=== PATIENT | female | born 1990 | race Caucasian/White ===

== ENCOUNTER 2017-09-01 15:09 | Inpatient (IN) | payer OTHER ==
[~2017-09-01] VITALS: Ht 160 cm; Wt 75.4 kg
[2017-09-01 15:13] VITALS: BP 117/69
[2017-09-01] MEDS ORDERED: ZOLOFT100 MG PO (15:21)
[2017-09-01] MEDS ORDERED: 'CLONIDINE0.1 MG PO (15:21)
[2017-09-01] MEDS ORDERED: SEROQUEL200 MG PO (15:22)
[2017-09-01] MEDS ORDERED: AMLODIPINE BESYL5 MG PO (15:39)
[2017-09-01] MEDS ORDERED: COZAAR100 MG PO (15:40)
[2017-09-01] MEDS ORDERED: DEPAKOTE ER250 MG PO (15:40)
[2017-09-01] MEDS ORDERED: OMEPRAZOLE D/R20 MG PO (15:42)
[2017-09-01] MEDS ORDERED: NICODERM CQ1 EAC2 T (15:43)
[2017-09-01 16:08] LABS: BASO % 0.6 % (0.0-1.0); EOS # 0.3 10*3/uL (0.0-0.4); EOS % 4.5 % (1.0-4.0); HEMOGLOBIN 12.8 g/dl (12.0-16.0); LYMPH # 1.5 10*3/uL (1.3-4.4); LYMPH % 22.7 % (27.0-41.0); MEAN CELL VOLUME 96.1 fl (81.0-99.0); MEAN CORPUSCULAR HGB 31.5 pg (27.0-31.0); MEAN CORPUSCULAR HGB CONC 32.8 g/dl (33.0-37.0); MEAN PLATELET VOLUME 9.8 fl (9.6-12.3); MONO # 0.7 10*3/uL (0.1-1.0); MONO % 11.6 % (3.0-9.0); NEUT # 3.9 10*3/uL (2.3-7.9); NEUT % 60.4 % (47.0-73.0); PLATELET COUNT AUTOMATED 261 10*3/uL (130-400); RED BLOOD COUNT 4.06 10*6/uL (4.10-5.10); WHITE BLOOD COUNT 6.4 10*3/uL (4.8-10.8)
[2017-09-01 16:23] LABS: ALBUMIN 3.8 gm/dl (3.1-4.5); ALKALINE PHOSPHATASE 111 U/L (45-117); BUN 10 mg/dl (7-24); CHLORIDE 104 mmol/L (98-107); CREATININE 0.81 mg/dL (0.55-1.02); POTASSIUM 4.2 mmol/L (3.5-5.1); SGOT/AST 74 IU/L (3-35); SGPT/ALT 78 U/L (12-78); SODIUM 139 mmol/L (136-145); TOTAL PROTEIN 8.5 gm/dL (6.4-8.2)
[2017-09-01 16:26] LABS: BETA-HCG, QUANT < 1.0 mIU/mL (1-3)
--- NOTE | 2017-09-01 16:28 | NUR ---
PATIENT IS ADMITTED TO THE [facility] SERVICE. BYRON ROCHA B[employer]A[facility] [employer]
[2017-09-01 16:33] LABS: BILIRUBIN NEGATIVE (NEGATIVE); BLOOD NEGATIVE (NEGATIVE); CLARITY SL CLOUDY (CLEAR); COLOR YELLOW (YELLOW); GLUCOSE NEGATIVE (NEGATIVE); KETONE TRACE (NEGATIVE); LEUKO ESTERASE NEGATIVE (NEGATIVE); NITRITE NEGATIVE (NEGATIVE); SPECIFIC GRAVITY >= 1.030 (1.005-1.030)
[2017-09-01 16:40] LABS: BACTERIA 2+; EPITHELIAL CELLS 0-2; MUCOUS TRACE; RBC 0-2 rbc/hpf (0-2)
[2017-09-01 16:41] LABS: URINE AMPHETAMINES < 1000 (1000ng/ml); URINE BARBITURATES < 200 (200ng/ml); URINE BENZODIAZEPINES > 200 (200ng/ml); URINE CANNABINOIDS (THC) < 50 (50ng/ml); URINE COCAINE < 300 (300ng/ml); URINE METHADONE < 300 (300ng/ml); URINE OPIATES > 300 (300ng/ml); URINE PHENCYCLIDINE < 25 (25ng/ml)
[2017-09-01 17:10] VITALS: BP 102/60
[2017-09-01 17:24] VITALS: BP 125/86
[2017-09-01 20:00] VITALS: BP 102/60
--- NOTE | 2017-09-01 20:31 | NUR ---
SPOKE WITH AT THIS TIME REGARDING PATIENT'S HOME MED REC. MED REC UPDATED PER PATIENT RECALL. PATIENT REQUESTING SEROQUEL. ALSO DISCUSSED SCHEDULED SUBUTEX AND PATIENT MISSED FIRST DOSE. INSTRUCTED TO GIVE MISSED DOSE NOW AND GIVE SCHEDULED SECOND DOSE AT MIDNIGHT.
[2017-09-01] MEDS ORDERED: KEPPRA500 MG PO (20:42)
--- NOTE | 2017-09-01 20:43 | NUR ---
PATIENT MEDICATED WITH PO VISTARIL PER PRN ORDER FOR C/O ANXIETY. MISSED DOSE OF SCHEDULED SUBUTEX ALSO GIVEN AT THIS TIME PER DR. ORNELAS'S ORDERS. PATIENT STATES SHE ALSO TAKES KEPPRA AT HOME 500 MG BID FOR HX OF SEIZURES. MED REC UPDATED AT THIS TIME. WILL MONITOR PATIENT. CALL LIGHT LEFT IN REACH.
--- NOTE | 2017-09-01 21:36 | NUR ---
PATIENT MEDICATED WITH PO MOTRIN PER PRN ORDER FOR C/O CHRONIC BACK PAIN. NICOTINE PATCH ALSO PLACED TO LEFT BACK SHOULDER PER REQUEST. WILL MONITOR. CALL LIGHT LEFT IN REACH.
--- NOTE | 2017-09-01 22:06 | NUR ---
NOTIFIED OF UPDATES TO [facility] MED REC. NEW ORDERS TO FOLLOW.
--- NOTE | 2017-09-01 22:45 | NUR ---
EARLIER MEDICATIONS EFFECTIVE PER PATIENT. WILL CONTINUE TO MONITOR. CALL LIGHT LEFT IN REACH.
[2017-09-02] VITALS: BP 94/57
--- NOTE | 2017-09-02 00:49 | NUR ---
PATIENT MEDICATED WITH PO TYLENOL PER PRN ORDER FOR C/O BACK PAIN. WILL MONITOR EFFECTIVENESS. CALL LIGHT LEFT IN REACH.
--- NOTE | 2017-09-02 01:24 | NUR ---
EARLIER TYLENOL APPEARS EFFECTIVE. PATIENT ASLEEP IN BED. NO S/S OF DISTRESS NOTED.
[2017-09-02 04:00] VITALS: BP 92/44
--- NOTE | 2017-09-02 04:51 | NUR ---
ATTEMPTED TO RECHECK BLOOD PRESSURE MANUALLY. PATIENT REFUSED AT THIS TIME. WILL TRY AGAIN AT LATER TIME.
[2017-09-02 08:00] VITALS: BP 108/60
--- NOTE | 2017-09-02 08:48 | NUR ---
Shift chart check completed. KENNEDY FRENCH SPNRCC
--- NOTE | 2017-09-02 09:00 | NUR ---
SLEEPING IN BED. RESP-EASY AND REGULAR. STUDENT NURSE WITH PT TODAY. CALL LIGHT IN REACH.
--- NOTE | 2017-09-02 09:19 | NUR ---
Patient resting. Responding to scheduled medications with fewer complaints of pain and anxiety. KENNEDY FRENCH SPROBINCC
--- NOTE | 2017-09-02 10:33 | NUR ---
MEDICATED PT FOR C/O STOMACH CRAMPING, MILD ANXIETY, AND MUSCLE ACHES IN BACK WITH PRN MEDICATION KENNEDY FRENCH SPNRCC
--- NOTE | 2017-09-02 11:29 | NUR ---
PT RELAXED AT PRESENT BUT STATES THAT SHE CONTINUES TO HAVE BACK PAIN, MEDICATED FOR PAIN, DENIES NAUSEA BUT STATES THAT STOMACH STILL "FLIP-FLOPS AT TIMES" KENNEDY MILNERCC
[2017-09-02 12:00] VITALS: BP 112/64
--- NOTE | 2017-09-02 12:00 | NUR ---
FAMILY IN VISITING WITH PT. PT STATES SHE WANTS TO LEAVE AMA BUT WILL FOLLOW UP WITH HER PHYSICIAN. KENNEDY MILNERCC
--- NOTE | 2017-09-02 12:24 | NUR ---
CALLED SIVA NARAYAN MADE AWARE PT LEAVING AMA. TRIED TO TALK WITH PT BUT SHE WANTS TO LEAVE. FAMILY MEMBER AT HER SIDE.
--- NOTE | 2017-09-02 12:30 | NUR ---
PT SIGNED AMA PAPERS, LEFT HOSPITAL WITH FAMILY KENNEDY FRENCH [facility]
== END 2017-09-02 12:30 | disposition left against medical advice (07) | DRG 894 ==
LOC: ED 15:09 → EDHOLD 15:36 → 4E 15:36
PROVIDERS: Emergency Medicine; ADMIT Internal Medicine
DX: F11.23 Opioid dependence with withdrawal (principal); E83.41 Hypermagnesemia; F31.9 Bipolar disorder, unspecified; G40.909 Epilepsy, unspecified, not intractable, without status epilepticus; R73.9 Hyperglycemia, unspecified; F17.200 Nicotine dependence, unspecified, uncomplicated; Z53.21 Procedure and treatment not carried out due to patient leaving prior to being seen by health care provider; R74.0 Nonspecific elevation of levels of transaminase and lactic acid dehydrogenase [LDH]; F13.10 Sedative, hypnotic or anxiolytic abuse, uncomplicated; F41.9 Anxiety disorder, unspecified; G25.81 Restless legs syndrome; Z79.899 Other long term (current) drug therapy; Z88.1 Allergy status to other antibiotic agents

== ENCOUNTER 2017-09-20 11:48 | Emergency (ER) | payer OTHER ==
[~2017-09-20] VITALS: Ht 162.5 cm; Wt 72.6 kg
[~2017-09-20 11:48] MED LIST: 'CLONIDINE0.1 MG PO; AMLODIPINE BESYL5 MG PO; COZAAR100 MG PO; DEPAKOTE ER250 MG PO; KEPPRA500 MG PO; NICODERM CQ1 EAC2 T; OMEPRAZOLE D/R20 MG PO; SEROQUEL200 MG PO; ZOLOFT100 MG PO
[2017-09-20] MEDS ORDERED: KEPPRA500 MG PO (12:39)
[2017-09-20] MEDS ORDERED: 'CLONIDINE0.1 MG PO (12:39)
[2017-09-20] MEDS ORDERED: SEROQUEL100 MG PO (12:39)
[2017-09-20] MEDS ORDERED: ZOLOFT100 MG PO (12:49)
== END 2017-09-20 13:51 | disposition home or self-care (01) ==
LOC: ED 11:48
DX: Z76.0 Encounter for issue of repeat prescription (principal); F11.20 Opioid dependence, uncomplicated; G40.909 Epilepsy, unspecified, not intractable, without status epilepticus; F17.200 Nicotine dependence, unspecified, uncomplicated; Z88.1 Allergy status to other antibiotic agents; Z79.899 Other long term (current) drug therapy

== ENCOUNTER 2017-11-21 10:10 | Inpatient (IN) | payer OTHER ==
[~2017-11-21] VITALS: Ht 165.1 cm; Wt 72.2 kg
[~2017-11-21 10:10] MED LIST changes: +SEROQUEL100 MG PO
[2017-11-21 11:25] VITALS: BP 109/66
[2017-11-21] MEDS ORDERED: GABAPENTIN800 MG PO (12:03)
[2017-11-21] MEDS ORDERED: SEROQUEL300 MG PO (12:03)
[2017-11-21] MEDS ORDERED: TRAZODONE50 MG PO (12:04)
[2017-11-21] MEDS ORDERED: CLONIDINE0.2 MG PO (12:04)
[2017-11-21 12:08] LABS: BILIRUBIN 1+ (NEGATIVE); BLOOD 3+ (NEGATIVE); CLARITY CLOUDY (CLEAR); COLOR YELLOW (YELLOW); GLUCOSE NEGATIVE (NEGATIVE); KETONE TRACE (NEGATIVE); LEUKO ESTERASE TRACE (NEGATIVE); NITRITE POSITIVE (NEGATIVE); PH 5.5 (5.0-9.0); SPECIFIC GRAVITY >= 1.030 (1.005-1.030); URINE AMPHETAMINES > 1000 (1000ng/ml); URINE BARBITURATES < 200 (200ng/ml); URINE BENZODIAZEPINES > 200 (200ng/ml); URINE CANNABINOIDS (THC) < 50 (50ng/ml); URINE COCAINE < 300 (300ng/ml); URINE METHADONE < 300 (300ng/ml); URINE OPIATES > 300 (300ng/ml)
[2017-11-21 12:10] LABS: URINE PHENCYCLIDINE < 25 (25ng/ml)
[2017-11-21 12:50] LABS: BASO # 0.1 10*3/uL (0.0-0.1); BASO % 0.7 % (0.0-1.0); EOS # 0.2 10*3/uL (0.0-0.4); HEMATOCRIT 37.8 % (37.0-47.0); HEMOGLOBIN 12.5 g/dl (12.0-16.0); LYMPH # 2.8 10*3/uL (1.3-4.4); LYMPH % 33.6 % (27.0-41.0); MEAN CELL VOLUME 92.9 fl (81.0-99.0); MEAN CORPUSCULAR HGB 30.7 pg (27.0-31.0); MEAN CORPUSCULAR HGB CONC 33.1 g/dl (33.0-37.0); MEAN PLATELET VOLUME 9.5 fl (9.6-12.3); MONO # 0.5 10*3/uL (0.1-1.0); MONO % 6.3 % (3.0-9.0); NEUT # 4.8 10*3/uL (2.3-7.9); NEUT % 57.2 % (47.0-73.0); PLATELET COUNT AUTOMATED 267 10*3/uL (130-400); RED BLOOD COUNT 4.07 10*6/uL (4.10-5.10); RED CELL DISTRI WIDTH 13.3 % (0-14.5); WHITE BLOOD COUNT 8.4 10*3/uL (4.8-10.8)
[2017-11-21 12:54] LABS: RBC TNTC rbc/hpf (0-2); WBC TNTC wbc/hpf (0-5)
[2017-11-21 12:55] LABS: BACTERIA 3+
[2017-11-21 13:07] LABS: ALBUMIN 3.6 gm/dl (3.1-4.5); ALKALINE PHOSPHATASE 86 U/L (45-117); BUN 11 mg/dl (7-24); CHLORIDE 106 mmol/L (98-107); CREATININE 0.68 mg/dL (0.55-1.02); POTASSIUM 3.9 mmol/L (3.5-5.1); SGOT/AST 19 IU/L (3-35); SGPT/ALT 18 U/L (12-78); SODIUM 136 mmol/L (136-145); TOTAL PROTEIN 8.1 gm/dL (6.4-8.2)
[2017-11-21 13:09] LABS: BETA-HCG, QUANT < 1.0 mIU/mL (1-3)
[2017-11-21 16:00] VITALS: BP 101/60
[2017-11-21 20:00] VITALS: BP 109/77
[2017-11-22] VITALS: BP 99/53
[2017-11-22 04:00] VITALS: BP 101/61
[2017-11-22 08:13] VITALS: BP 147/80
[2017-11-22 12:38] VITALS: BP 112/66
== END 2017-11-22 15:33 | disposition left against medical advice (07) | DRG 894 ==
LOC: 5E 10:10
PROVIDERS: Emergency Medicine; Internal Medicine Hospice and Palliative Medicine
DX: F11.23 Opioid dependence with withdrawal (principal); F10.239 Alcohol dependence with withdrawal, unspecified; N39.0 Urinary tract infection, site not specified; M25.50 Pain in unspecified joint; F15.10 Other stimulant abuse, uncomplicated; F13.10 Sedative, hypnotic or anxiolytic abuse, uncomplicated; F31.9 Bipolar disorder, unspecified; F17.210 Nicotine dependence, cigarettes, uncomplicated; G40.909 Epilepsy, unspecified, not intractable, without status epilepticus; F41.9 Anxiety disorder, unspecified; Z53.21 Procedure and treatment not carried out due to patient leaving prior to being seen by health care provider; Z90.49 Acquired absence of other specified parts of digestive tract; Z88.1 Allergy status to other antibiotic agents

== ENCOUNTER 2018-06-14 17:26 | Inpatient (IN) | payer OTHER ==
[~2018-06-14] VITALS: Ht 165.1 cm; Wt 74.4 kg
--- NOTE | ~2018-06-14 | CON ---
[place], [place] REPORT OF CONSULTATION NAME: JESUS SPICER UNIT #: [id number] ROOM: 409 DOCTOR: EDGARD PHD NEIL BIRTHDATE: [birth year] DOS: 06/15/2018 HISTORY OF PRESENT ILLNESS: The patient is a 28-year-old female referred by Rita Correa following concerns for suicidality. The police pink slipped the patient following her statement of "I can't go on like this" with respect to her drug use. At the present time, the patient is on the 4th floor at [facility]. The patient lives with her 8-year-old son and her mother. She is unemployed. The patient has a history of alcohol, opiate, benzodiazepine, amphetamine, and tobacco abuse. PAST MEDICAL HISTORY: Seizure disorder, depression, tobacco use disorder, alcohol use disorder, opiate use disorder, amphetamine use disorder, benzodiazepine use disorder. The patient is awake, alert and oriented. She was tearful intermittently and mood was depressed. She firmly denied suicidal ideation, plan, and intent. She stated that she had no desire to and made that statement as a reflection of her sense of helplessness and hopelessness in her attempts to remain sober. She has a history of suicide attempt, one at age 13 by cutting, which required medical intervention and another in 2011 by hanging herself. She stated that the rope broke and she regained consciousness. She emphasized that she has not tried to hurt herself since that time due to not wanting to or to leave her son without a mother. She has tried drug and alcohol rehab twice in the past, but it brought the sense of tirelessness over her cravings for substances. Her boyfriend recently overdosed and she stated that she does not want that to happen to her. Speech and language were within normal limits. Thought content and process were normal. Insight and judgment were fair. In my opinion, the patient does not appear to be an imminent risk to herself. She firmly denies current suicidal ideations and a desire for . She is able to contract for safety. She does not appear to need a sitter at this time. DIAGNOSES: Opiate use disorder, amphetamine use disorder, benzodiazepine use disorder, tobacco use disorder, alcohol use disorder, major depressive disorder, unspecified. RECOMMENDATIONS: 1. The patient does not appear to need a sitter at this time. She is not actively suicidal. 2. Continue with [facility] services for detox and further treatment. Thank you very much for this consult. [place], [place] REPORT OF CONSULTATION NAME: JESUS SPICER UNIT #: [id number] ROOM: 409 DOCTOR: EDGARD, PHD NEIL BIRTHDATE: [birth year] Jordyn nAdrews, PhD CM:CONSTR:REPORT OF CONSULTATION [id number] 06/22/18 1027 interface
[~2018-06-14 17:26] MED LIST changes: +CLONIDINE0.2 MG PO; +GABAPENTIN800 MG PO; +SEROQUEL300 MG PO; +TRAZODONE50 MG PO
[2018-06-14 17:27] VITALS: BP 112/84
[2018-06-14] MEDS ORDERED: CLONIDINE0.2 MG PO (17:44)
[2018-06-14 18:28] VITALS: BP 112/81
[2018-06-14] MEDS ORDERED: GABAPENTIN TAB600 MG PO (18:31)
[2018-06-14] MEDS ORDERED: KEPPRA500 MG PO (18:31)
[2018-06-14 18:37] LABS: BILIRUBIN NEGATIVE (NEGATIVE); BLOOD NEGATIVE (NEGATIVE); CLARITY CLOUDY (CLEAR); COLOR YELLOW (YELLOW); GLUCOSE NEGATIVE (NEGATIVE); KETONE NEGATIVE (NEGATIVE); LEUKO ESTERASE NEGATIVE (NEGATIVE); NITRITE NEGATIVE (NEGATIVE); SPECIFIC GRAVITY 1.015 (1.005-1.030)
[2018-06-14 18:48] LABS: WBC 0-2 wbc/hpf (0-5)
[2018-06-14 18:55] LABS: URINE AMPHETAMINES < 1000 (1000ng/ml); URINE BARBITURATES < 200 (200ng/ml); URINE BENZODIAZEPINES > 200 (200ng/ml); URINE CANNABINOIDS (THC) < 50 (50ng/ml); URINE COCAINE < 300 (300ng/ml); URINE METHADONE < 300 (300ng/ml); URINE OPIATES > 300 (300ng/ml)
[2018-06-14 19:05] LABS: URINE PHENCYCLIDINE < 25 (25ng/ml)
[2018-06-14 20:00] VITALS: BP 109/71
[2018-06-14 20:03] LABS: BASO # 0.1 10*3/uL (0.0-0.1); BASO % 0.8 % (0.0-1.0); EOS # 0.3 10*3/uL (0.0-0.4); HEMATOCRIT 40.1 % (37.0-47.0); HEMOGLOBIN 13.3 g/dl (12.0-16.0); LYMPH # 3.2 10*3/uL (1.3-4.4); LYMPH % 36.4 % (27.0-41.0); MEAN CELL VOLUME 93.5 fl (81.0-99.0); MEAN CORPUSCULAR HGB CONC 33.2 g/dl (33.0-37.0); MEAN PLATELET VOLUME 9.4 fl (9.6-12.3); MONO # 0.7 10*3/uL (0.1-1.0); MONO % 8.3 % (3.0-9.0); NEUT # 4.5 10*3/uL (2.3-7.9); NEUT % 51.3 % (47.0-73.0); PLATELET COUNT AUTOMATED 334 10*3/uL (130-400); RED BLOOD COUNT 4.29 10*6/uL (4.10-5.10); RED CELL DISTRI WIDTH 13.1 % (0-14.5); WHITE BLOOD COUNT 8.7 10*3/uL (4.8-10.8)
[2018-06-14 20:19] LABS: ALBUMIN 3.8 gm/dl (3.1-4.5); ALKALINE PHOSPHATASE 83 U/L (45-117); BUN 5 mg/dl (7-24); CHLORIDE 104 mmol/L (98-107); CREATININE 0.83 mg/dL (0.55-1.02); POTASSIUM 3.5 mmol/L (3.5-5.1); SGOT/AST 14 IU/L (3-35); SGPT/ALT 16 U/L (12-78); SODIUM 139 mmol/L (136-145)
[2018-06-14 20:22] LABS: ETHYL ALCOHOL < 3.0 mg/dl (<3)
[2018-06-15] VITALS: BP 112/63
[2018-06-15 08:00] VITALS: BP 118/77
== END 2018-06-15 11:30 | disposition left against medical advice (07) | DRG 894 ==
LOC: ED 17:26 → EDHOLD 17:53 → 4E 17:53
PROVIDERS: Student in an Organized Health Care Education/Training Program
DX: F11.23 Opioid dependence with withdrawal (principal); R45.851 Suicidal ideations; F31.9 Bipolar disorder, unspecified; G40.909 Epilepsy, unspecified, not intractable, without status epilepticus; F15.90 Other stimulant use, unspecified, uncomplicated; F13.90 Sedative, hypnotic, or anxiolytic use, unspecified, uncomplicated; R45.1 Restlessness and agitation; F17.210 Nicotine dependence, cigarettes, uncomplicated; Z53.21 Procedure and treatment not carried out due to patient leaving prior to being seen by health care provider; Z88.1 Allergy status to other antibiotic agents; Z87.440 Personal history of urinary (tract) infections; Z91.5 Personal history of self-harm; Z72.89 Other problems related to lifestyle

== ENCOUNTER 2018-07-11 16:19 | Emergency (ER) | payer OTHER ==
[~2018-07-11] VITALS: Ht 162.5 cm; Wt 72.6 kg
[~2018-07-11 16:19] MED LIST changes: +GABAPENTIN TAB600 MG PO
[2018-07-11 17:45] LABS: BILIRUBIN NEGATIVE (NEGATIVE); BLOOD NEGATIVE (NEGATIVE); CLARITY CLEAR (CLEAR); COLOR YELLOW (YELLOW); GLUCOSE NEGATIVE (NEGATIVE); KETONE NEGATIVE (NEGATIVE); LEUKO ESTERASE NEGATIVE (NEGATIVE); NITRITE NEGATIVE (NEGATIVE); SPECIFIC GRAVITY <= 1.005 (1.005-1.030); UROBILINOGEN 0.2 E.U./dl (0.2-1.0)
[2018-07-11 17:53] LABS: BACTERIA 2+; RBC 0-2 rbc/hpf (0-2); WBC 0-2 wbc/hpf (0-5)
[2018-07-11 17:54] LABS: URINE AMPHETAMINES < 1000 (1000ng/ml); URINE BARBITURATES > 200 (200ng/ml); URINE BENZODIAZEPINES < 200 (200ng/ml); URINE CANNABINOIDS (THC) < 50 (50ng/ml); URINE COCAINE > 300 (300ng/ml); URINE METHADONE < 300 (300ng/ml); URINE OPIATES > 300 (300ng/ml); URINE PHENCYCLIDINE < 25 (25ng/ml)
== END 2018-07-11 17:44 | disposition left against medical advice (07) ==
LOC: ED 16:19
PROVIDERS: Nurse Practitioner Family
DX: L02.612 Cutaneous abscess of left foot (principal); F13.10 Sedative, hypnotic or anxiolytic abuse, uncomplicated; F11.10 Opioid abuse, uncomplicated; F19.10 Other psychoactive substance abuse, uncomplicated; F14.10 Cocaine abuse, uncomplicated; F41.9 Anxiety disorder, unspecified; F31.9 Bipolar disorder, unspecified; G40.909 Epilepsy, unspecified, not intractable, without status epilepticus; Z76.0 Encounter for issue of repeat prescription; Z88.1 Allergy status to other antibiotic agents; Z90.89 Acquired absence of other organs; Z87.891 Personal history of nicotine dependence

== ENCOUNTER 2018-07-18 11:46 | Inpatient (IN) | payer OTHER ==
[~2018-07-18] VITALS: Ht 165.1 cm; Wt 72.2 kg
[2018-07-18 11:49] VITALS: BP 111/41
[2018-07-18] MEDS ORDERED: SERTRALINE HYD100 MG PO (12:04)
[2018-07-18] MEDS ORDERED: QUETIAPINE FUM100 M3 PO (12:04)
[2018-07-18] MEDS ORDERED: NEURONTIN300 MG PO (12:05)
[2018-07-18] MEDS ORDERED: CIPROFLOXACIN500 M4 PO (12:05)
[2018-07-18] MEDS ORDERED: SULFAMETHOXAZOLE-TRI PO (12:05)
[2018-07-18 12:45] LABS: BASO # 0.1 10*3/uL (0.0-0.1); BASO % 0.6 % (0.0-1.0); EOS # 0.1 10*3/uL (0.0-0.4); EOS % 1.7 % (1.0-4.0); HEMATOCRIT 43.6 % (37.0-47.0); HEMOGLOBIN 14.4 g/dl (12.0-16.0); LYMPH # 2.3 10*3/uL (1.3-4.4); LYMPH % 28.3 % (27.0-41.0); MEAN CELL VOLUME 92.6 fl (81.0-99.0); MEAN CORPUSCULAR HGB 30.6 pg (27.0-31.0); MEAN PLATELET VOLUME 10.1 fl (9.6-12.3); MONO # 0.5 10*3/uL (0.1-1.0); MONO % 6.1 % (3.0-9.0); NEUT # 5.2 10*3/uL (2.3-7.9); NEUT % 63.1 % (47.0-73.0); PLATELET COUNT AUTOMATED 314 10*3/uL (130-400); RED BLOOD COUNT 4.71 10*6/uL (4.10-5.10); RED CELL DISTRI WIDTH 13.1 % (0-14.5); WHITE BLOOD COUNT 8.2 10*3/uL (4.8-10.8)
[2018-07-18 13:03] LABS: BILIRUBIN 1+ (NEGATIVE); BLOOD NEGATIVE (NEGATIVE); CLARITY SL CLOUDY (CLEAR); COLOR YELLOW (YELLOW); GLUCOSE NEGATIVE (NEGATIVE); KETONE NEGATIVE (NEGATIVE); LEUKO ESTERASE NEGATIVE (NEGATIVE); NITRITE NEGATIVE (NEGATIVE); SPECIFIC GRAVITY 1.025 (1.005-1.030); UROBILINOGEN 0.2 E.U./dl (0.2-1.0)
[2018-07-18 13:06] LABS: ALBUMIN 4.1 gm/dl (3.1-4.5); ALKALINE PHOSPHATASE 73 U/L (45-117); BUN 14 mg/dl (7-24); CHLORIDE 101 mmol/L (98-107); CREATININE 1.12 mg/dL (0.55-1.02); SGOT/AST 15 IU/L (3-35); SGPT/ALT 16 U/L (12-78); SODIUM 135 mmol/L (136-145); TOTAL PROTEIN 9.1 gm/dL (6.4-8.2)
[2018-07-18 13:07] LABS: ACETAMINOPHEN (TYLENOL) < 5.0 ug/ml (10-30); ETHYL ALCOHOL < 3.0 mg/dl (<3)
[2018-07-18 13:11] LABS: URINE AMPHETAMINES < 1000 (1000ng/ml); URINE BARBITURATES > 200 (200ng/ml); URINE BENZODIAZEPINES < 200 (200ng/ml); URINE CANNABINOIDS (THC) < 50 (50ng/ml); URINE COCAINE > 300 (300ng/ml); URINE METHADONE < 300 (300ng/ml); URINE OPIATES > 300 (300ng/ml)
[2018-07-18 13:12] LABS: BACTERIA 2+
[2018-07-18 13:13] LABS: URINE PHENCYCLIDINE < 25 (25ng/ml)
[2018-07-18 13:14] LABS: THYROID STIM HORMONE (HS) 0.891 uIU/ml (0.358-4.75)
[2018-07-18 13:39] VITALS: BP 93/57
[2018-07-18 14:21] VITALS: BP 97/65
[2018-07-18 14:33] VITALS: BP 104/59
[2018-07-18 20:00] VITALS: BP 99/59
[2018-07-19] VITALS: BP 108/53
[2018-07-19 12:00] VITALS: BP 108/63
[2018-07-19 16:00] VITALS: BP 105/61
[2018-07-19 20:00] VITALS: BP 99/62
[2018-07-20] VITALS: BP 124/67
== END 2018-07-20 15:20 | disposition left against medical advice (07) | DRG 894 ==
LOC: ED 11:46 → EDHOLD 13:56 → 5E 13:56
PROVIDERS: Internal Medicine; Nurse Practitioner Family
DX: F11.29 Opioid dependence with unspecified opioid-induced disorder (principal); E87.1 Hypo-osmolality and hyponatremia; E87.2 Acidosis; F10.29 Alcohol dependence with unspecified alcohol-induced disorder; S91.302A Unspecified open wound, left foot, initial encounter; R11.2 Nausea with vomiting, unspecified; Z53.21 Procedure and treatment not carried out due to patient leaving prior to being seen by health care provider; F19.10 Other psychoactive substance abuse, uncomplicated; F14.10 Cocaine abuse, uncomplicated; R00.1 Bradycardia, unspecified; I95.9 Hypotension, unspecified; F13.10 Sedative, hypnotic or anxiolytic abuse, uncomplicated; F31.9 Bipolar disorder, unspecified; G40.909 Epilepsy, unspecified, not intractable, without status epilepticus; F15.10 Other stimulant abuse, uncomplicated; X08.8XXA Exposure to other specified smoke, fire and flames, initial encounter; F17.210 Nicotine dependence, cigarettes, uncomplicated; Y93.89 Activity, other specified; Y92.89 Other specified places as the place of occurrence of the external cause; Y99.8 Other external cause status; Z71.6 Tobacco abuse counseling; Z88.1 Allergy status to other antibiotic agents; Z79.899 Other long term (current) drug therapy

== ENCOUNTER 2019-10-27 16:39 | Emergency (ER) | payer OTHER ==
[~2019-10-27] VITALS: Ht 162.5 cm; Wt 72.6 kg
[~2019-10-27 16:39] MED LIST changes: +CIPROFLOXACIN500 M4 PO; +NEURONTIN300 MG PO; +QUETIAPINE FUM100 M3 PO; +SERTRALINE HYD100 MG PO; +SULFAMETHOXAZOLE-TRI PO
[2019-10-27 18:21] LABS: BASO # 0.1 10*3/uL (0.0-0.1); BASO % 0.7 % (0.0-1.0); EOS # 0.2 10*3/uL (0.0-0.4); EOS % 1.9 % (1.0-4.0); HEMATOCRIT 36.9 % (37.0-47.0); HEMOGLOBIN 12.2 g/dl (12.0-16.0); LYMPH # 4.1 10*3/uL (1.3-4.4); MEAN CELL VOLUME 91.3 fl (81.0-99.0); MEAN CORPUSCULAR HGB 30.2 pg (27.0-31.0); MEAN CORPUSCULAR HGB CONC 33.1 g/dl (33.0-37.0); MEAN PLATELET VOLUME 10.3 fl (9.6-12.3); MONO # 0.9 10*3/uL (0.1-1.0); MONO % 9.3 % (3.0-9.0); NEUT # 4.1 10*3/uL (2.3-7.9); NEUT % 43.9 % (47.0-73.0); PLATELET COUNT AUTOMATED 306 10*3/uL (130-400); RED BLOOD COUNT 4.04 10*6/uL (4.10-5.10); RED CELL DISTRI WIDTH 14.7 % (0-14.5); WHITE BLOOD COUNT 9.4 10*3/uL (4.8-10.8)
[2019-10-27 18:43] LABS: ALBUMIN 3.8 gm/dl (3.1-4.5); ALKALINE PHOSPHATASE 104 U/L (45-117); BUN 10 mg/dl (7-24); CHLORIDE 108 mmol/L (98-107); CREATININE 0.95 mg/dL (0.55-1.02); POTASSIUM 3.1 mmol/L (3.5-5.1); SGOT/AST 57 IU/L (3-35); SGPT/ALT 80 U/L (12-78); SODIUM 138 mmol/L (136-145); TOTAL PROTEIN 7.8 gm/dL (6.4-8.2)
[2019-10-27] MEDS ORDERED: CLINDAMYCIN HC300 MG PO (19:31)
== END 2019-10-27 19:58 | disposition home or self-care (01) ==
LOC: ED 16:39
PROVIDERS: Physician Assistant
DX: L08.9 Local infection of the skin and subcutaneous tissue, unspecified (principal); F17.200 Nicotine dependence, unspecified, uncomplicated; Z86.14 Personal history of Methicillin resistant Staphylococcus aureus infection; Z88.1 Allergy status to other antibiotic agents; Z79.899 Other long term (current) drug therapy; Z79.2 Long term (current) use of antibiotics